=== PATIENT | male | born 1965 | race Two or more races ===

== ENCOUNTER 2018-07-29 13:10 | Outpatient (CLI) | payer OTHER | END 2018-07-29 13:17 | disposition home or self-care (01) | LOC: RAD 501 13:10 | DX: J32.8 Other chronic sinusitis (principal); J44.9 Chronic obstructive pulmonary disease, unspecified ==

== ENCOUNTER 2018-10-19 10:39 | Outpatient (CLI) | payer OTHER ==
[~2018-10-19] VITALS: Ht 172.7 cm; Wt 74.8 kg
== END 2018-10-19 11:00 | disposition home or self-care (01) ==
LOC: OFIC 805 10:39
DX: J34.89 Other specified disorders of nose and nasal sinuses (principal); R09.81 Nasal congestion